=== PATIENT | male | born 1995 | race Caucasian/White ===

== ENCOUNTER → 2021-04-30 | Outpatient (CLI) | payer BC ==
--- NOTE | 2021-05-01 12:32 | ECHOF ---
Referral Reason:R01.1 Heart murmur MEASUREMENTS -------- HEIGHT: 175.3 cm WEIGHT: 79.4 kg BP: IVSd: 0.8 cm (0.6 - 1.1) LVIDd: 5.6 cm (3.9 - 5.3) LVPWd: 0.8 cm (0.6 - 1.1) EDV(Teich): 152 ml IVSs: 1.0 cm LVIDs: 4.3 cm LVPWs: 1.2 cm %IVS Thck: 26 % ESV(Teich): 81 ml EF(Teich): 47 % %FS: 24 % SV(Teich): 71 ml LA Diam: 3.4 cm (2.7 - 3.8) RVIDd: 2.6 cm (< 3.3) Ao Diam: 2.6 cm (2.0 - 3.7) LA Diam: 3.4 cm (2.7 - 3.8) AV Cusp: 1.9 cm (1.5 - 2.6) EPSS: 0.8 cm MV E Juventino: 0.93 m/s MV DecT: 172 ms MV Dec Cassia: 5.4 m/s MV A Juventino: 0.39 m/s MV E/A Ratio: 2.40 MV PHT: 50 ms TR Vmax: 1.39 m/s TR maxP.70 mmHg RAP: 5.00 mmHg RVSP: 12.70 mmHg MV EF SLOPE: 148.10 mm/s (70 - 150) MV EXCURSION: 23.69 mm (> 18.000) FINDINGS -------- Sinus rhythm. This was a technically good study. LV size, wall thickness and systolic function are normal, with an EF greater than 55%. The left cory tricular size is normal. The right ventricle is normal in size. The left atrial size is normal. The right atrial size is normal. The aortic valve is trileaflet, and appears structurally normal. No aortic stenosis or regurgitation. Mild mitral regurgitation is present. Mild tricuspid regurgitation present. Right ventricular systolic pressure is normal at < 35 mmHg. There is no pulmonic regurgitation present. The aortic root size is normal. There is no pericardial effusion. CONCLUSIONS -------- 1. LV size, wall thickness and systolic function are normal, with an EF greater than 55%. 2. The left ventricular size is normal. 3. The right ventricle is normal in size. 4. The left atrial size is normal. 5. The right atrial size is normal. 6. The aortic valve is trileaflet, and appears structurally normal. No aortic stenosis or regurgitati on. 7. Mild mitral regurgitation is present. 8. Mild tricuspid regurgitation present. 9. The aortic root size is normal. 10. There is no pericardial effusion. LIEN SEARCHER: Sherry Cabrales RDCS
== END | disposition home or self-care (01) ==
LOC: RADECHMAIN 15:43
PROVIDERS: ATTEND Family Medicine
DX: I08.1 Rheumatic disorders of both mitral and tricuspid valves (principal)
CPT/HCPCS: 93306